=== PATIENT | female | born 1995 | race American Indian/Alaskan Native ===

== ENCOUNTER 2016-08-29 19:40 | Outpatient (CLI) | payer OTHER, MEDICAID ==
--- NOTE | 2016-08-30 07:05 | Ultrasound Report ---
BIOPHYSICAL PROFILE: INDICATION: well being. COMPARISON: None similar during this gestation. TECHNIQUE: Transabdominal ultrasound with Doppler interrogation. 2 - breathing movements 2 - movements 2 - posture and tone 2 - Qualitative amniotic fluid volume 8 - TOTAL SCORE OF POSSIBLE 8 Heart Rate (bpm) 162
[2016-08-30 17:52] VITALS: BP 136/72
== END 2016-08-29 22:05 | disposition home or self-care (01) ==
LOC: TRG 19:40
PROVIDERS: ATTEND Obstetrics & Gynecology Gynecology
DX: Z36 Encounter for antenatal screening of mother (principal); Z3A.40 40 weeks gestation of pregnancy
CPT/HCPCS: 76819

== ENCOUNTER 2020-03-25 03:24 | Emergency (ER) | payer MEDICAID, OTHER ==
[2020-03-25 05:06] VITALS: BP 154/88
[2020-03-25 05:51] LABS: Basophils # (Auto) 0.1 K/mm3 (0.0-0.1); Basophils % (Auto) 0.4 % (0.0-1.8); Eosinophils # (Auto) 0.3 K/mm3 (0.0-0.4); Eosinophils % (Auto) 2.5 % (0.0-4.3); Hematocrit 38.5 % (30.3-42.9); Hemoglobin 13.5 gm/dl (10.1-14.3); Lymphocytes # (Auto) 2.7 K/mm3 (1.2-5.4); Lymphocytes % (Auto) 20.7 % (13.4-35.0); Mean Corpuscular HGB Conc 35 % (30-34); Mean Corpuscular Volume 91 fl (79-97); Monocytes # (Auto) 0.7 K/mm3 (0.0-0.8); Monocytes % (Auto) 5.5 % (0.0-7.3); Platelet Count 372 K/mm3 (140-440); Red Blood Count 4.24 M/mm3 (3.65-5.03); Red Cell Distribution Width 13.5 % (13.2-15.2)
[2020-03-25 06:13] LABS: Alanine Aminotransferase 15 units/L (7-56); Albumin 4.2 g/dL (3.9-5); Blood Urea Nitrogen 15 mg/dL (7-17); Calcium 9.6 mg/dL (8.4-10.2); Hemolysis Index 8
[2020-03-25 06:17] LABS: BUN/Creatinine Ratio 25
[2020-03-25 06:50] LABS: Bilirubin,Urine NEG (Negative); Blood,Urine NEG (Negative); Color,Urine Yellow (Yellow); Mucus,Urine FEW /HPF; Protein,Urine <15 mg/dL mg/dL (Negative); Urobilinogen,Urine < 2.0 mg/dL (<2.0); WBC,Urine < 1.0 /HPF (0.0-6.0)
[2020-03-25] MEDS ORDERED: ONDANSETRON 4 MG/2 ML INJ IV ONE (07:20)
[2020-03-25] MEDS ORDERED: FAMOTIDINE 20 MG TAB PO ONE (07:20)
[2020-03-25] MEDS ORDERED: MORPHINE 2 MG/1 ML INJ IV ONE (07:20)
[2020-03-25] MEDS ORDERED: SODIUM CHLORIDE 0.9% 1000 ML 1,000 ML IV ONE (07:20)
--- NOTE | 2020-03-25 07:52 | Emergency Department Report ---
ED Abdominal Pain HPI - General Chief Complaint: Abdominal Pain Stated Complaint: ABD PAIN VOMITING Time Seen by Provider: 03/25/20 07:12 Source: patient Mode of arrival: Ambulatory Limitations: No Limitations - History of Present Illness Initial Comments: 24-year-old female with no significant past medical history presents to the ER today complaining of epigastric abdominal pain. Patient states that her symptoms started last night around 9/10 PM. Patient states that her pain initially started in her lower back, but then gradually settled into the upper abdominal area. She describes the pain as a burning constant pain. She states she had a chicken wrap with honey mustard about 1 hr prior to pain starting. She reports associated vomiting. She states that she vomited 3-4 times. Emesis was mainly food/liquid. She denies any hematemesis. She denies any bowel changes. She denies any fever or chills. She denies any chest pain or shortness of breath. She denies any abdominal surgeries in the past. She denies any alcohol abuse or NSAID abuse. Patient reports that her pain initially started and was a 10 out of 10. She states that it is now an 8 out of 10. Her last menstrual cycle was March 04, 2020. Complaint: abdominal pain -: Gradual, Last night - Related Data Previous Rx's Medication Instructions Recorded Last Taken Type Famotidine [Pepcid] 20 mg PO BID #30 tablet 03/25/20 Unknown Rx HYDROcodone/APAP 5-325 [[place] 1 each PO Q6HR PRN #12 tablet 03/25/20 Unknown Rx 5/325] Ondansetron [Zofran Odt] 4 mg PO Q8HR PRN #12 tab.rapdis 03/25/20 Unknown Rx Allergies Allergy/AdvReac Type Severity Reaction Status Date / Time No Known Allergies Allergy Verified 08/30/16 09:14 ED Review of Systems ROS: Stated complaint: ABD PAIN VOMITING Other details as noted in HPI Comment: All other systems reviewed and negative Constitutional: denies: chills, fever Eyes: as per HPI Respiratory: denies: cough, shortness of breath, wheezing Cardiovascular: denies: chest pain, palpitations Gastrointestinal: abdominal pain, nausea, vomiting. denies: diarrhea, constipation, hematemesis, hematochezia Genitourinary: denies: urgency, dysuria, discharge Musculoskeletal: back pain Skin: denies: rash, lesions Neurological: denies: headache, weakness, paresthesias Psychiatric: denies: anxiety, depression Hematological/Lymphatic: denies: easy bleeding, easy bruising ED Past Medical Hx - Past Medical History Previous Medical History?: Yes Hx Hypertension: No Hx Congestive Heart Failure: No Hx Diabetes: No Hx Deep Vein Thrombosis: No Hx Renal Disease: No Hx Sickle Cell Disease: No Hx Seizures: No Hx Asthma: Yes Hx COPD: No Hx HIV: No - Surgical History Past Surgical History?: No - Social History Smoking Status: Never Smoker - Medications Home Medications: Home Medications Medication Instructions Recorded Confirmed Last Taken Type Famotidine [Pepcid] 20 mg PO BID #30 tablet 03/25/20 Unknown Rx HYDROcodone/APAP 5-325 [[place] 1 each PO Q6HR PRN #12 tablet 03/25/20 Unknown Rx 5/325] Ondansetron [Zofran Odt] 4 mg PO Q8HR PRN #12 tab.rapdis 03/25/20 Unknown Rx ED Physical Exam - General Limitations: No Limitations General appearance: alert, in no apparent distress, other (pt was sleeping comf ortably when I walked in room) - Head Head exam: Present: atraumatic, normocephalic, normal inspection - Eye Eye exam: Present: normal appearance - ENT ENT exam: Present: mucous membranes moist - Respiratory Respiratory exam: Present: normal lung sounds bilaterally. Absent: respiratory distress - Cardiovascular Cardiovascular Exam: Present: regular rate, normal rhythm. Absent: systolic murmur, diastolic murmur, rubs, gallop - GI/Abdominal GI/Abdominal exam: Present: soft, tenderness (Epigastric/RUQ; Neg leal's). Absent: distended, guarding, rebound - Neurological Exam Neurological exam: Present: alert, oriented X3, CN II-XII intact, normal gait - Psychiatric Psychiatric exam: Present: normal affect, normal mood - Skin Skin exam: Present: intact ED Course Vital Signs 03/25/20 05:02 Temperature 97.8 F Pulse Rate 90 Respiratory 18 Rate Blood Pressure 154/88 O2 Sat by Pulse 98 Oximetry ED Medical Decision Making - Lab Data Result diagrams: 03/25/20 05:29 03/25/20 05:29 - Radiology Data Radiology results: report reviewed - Medical Decision Making 901 --patient reports that her pain is much better after IV morphine, IV Zofran, and Pepcid. Patient is resting comfortably and she does not appear to be in any acute distress. She is not toxic or ill-appearing. No vomiting during stay. Vital signs are stable. Labs/ultrasound reviewed. Ultrasound shows gallstones but no apparent signs of infection. Discussed results with [facility]. Recommend follow-up with general surgeon for further evaluation and treatment of her gallstones. I did discuss diet changes with patient. I did discussed worsening signs and symptoms and what to look for to return to the ER with patient. Patient expresses understanding of instructions and agrees with plan. No further work-up or admission or emergent consultation indicated at this time. Patient stable at time of discharge. Critical care attestation.: If time is entered above; I have spent that time in minutes in the direct care of this critically ill patient, excluding procedure time. ED Disposition Clinical Impression: Gallstone Disposition: DC-01 TO HOME OR SELFCARE Is pt being admited?: No Does the pt Need Aspirin: No Condition: Stable Instructions: Biliary Colic (ED) Additional Instructions: I recommend that you follow-up with a general surgeon as discussed. I recommend that you avoid fried fatty greasy as well as acidic foods. Take the medication prescribed as directed. Return to the ER if the pain becomes worse, with associated fever, uncontrolled nausea and vomiting. Prescriptions: HYDROcodone/APAP 5-325 [[place] 5/325] 1 each PO Q6HR PRN #12 tablet PRN Reason: Pain Famotidine [Pepcid] 20 mg PO BID #30 tablet Ondansetron [Zofran Odt] 4 mg PO Q8HR PRN #12 tab.rapdis PRN Reason: Vomiting Referrals: SILAS GILBERT MD [Staff Physician] - 3-5 Days Forms: Work/School Release Form(ED) Time of Disposition: 09:03
--- NOTE | 2020-03-25 08:48 | Ultrasound Report ---
ULTRASOUND ABDOMEN, LIMITED (RIGHT UPPER QUADRANT) INDICATION: Epigastric pain. COMPARISON: None available. FINDINGS: Pancreas: Visualized portion shows no significant abnormality. Liver: Normal. Gallbladder: Multiple gallstones. No wall thickening. Bile ducts: Normal. Common Bile Duct measures 3.5. mm. Free fluid: None. Additional Findings: Mild fullness at the right renal pelvis. IMPRESSION: 1. Gallstones without wall thickening or biliary dilatation. 2. Suspect right extrarenal pelvis. Signer Name: Caleb Jones MD Signed: 03/25/2020 8:44 AM Workstation Name: [id number]
== END 2020-03-25 09:16 | disposition home or self-care (01) ==
LOC: ED 03:24
DX: K80.20 Calculus of gallbladder without cholecystitis without obstruction (principal); J45.909 Unspecified asthma, uncomplicated; R11.2 Nausea with vomiting, unspecified; Z79.899 Other long term (current) drug therapy
CPT/HCPCS: 36415; 76705; 80053; 81001; 83690; 84703; 85025; 96361; 96374; 96375; 99284; J2270; J2405; J7030

== ENCOUNTER 2020-09-12 03:43 | Emergency (ER) | payer MEDICAID ==
[2020-09-12 03:59] VITALS: BP 125/88
[2020-09-12 04:42] LABS: Basophils % (Auto) 0.3 % (0.0-1.8); Eosinophils # (Auto) 0.2 K/mm3 (0.0-0.4); Eosinophils % (Auto) 2.1 % (0.0-4.3); Hematocrit 36.7 % (30.3-42.9); Hemoglobin 12.6 gm/dl (10.1-14.3); Lymphocytes # (Auto) 2.5 K/mm3 (1.2-5.4); Lymphocytes % (Auto) 24.8 % (13.4-35.0); Mean Corpuscular HGB Conc 34 % (30-34); Mean Corpuscular Volume 91 fl (79-97); Monocytes # (Auto) 0.6 K/mm3 (0.0-0.8); Monocytes % (Auto) 6.1 % (0.0-7.3); Platelet Count 344 K/mm3 (140-440); Red Blood Count 4.03 M/mm3 (3.65-5.03); Red Cell Distribution Width 13.6 % (13.2-15.2)
[2020-09-12] MEDS ORDERED: DICYCLOMINE 20 MG/2 ML INJ IM ONE (04:51)
[2020-09-12] MEDS ORDERED: LIDOCAINE VISCOUS 2% 15 ML ORAL LIQD PO ONE (04:51)
[2020-09-12] MEDS ORDERED: ONDANSETRON 4 MG/2 ML INJ IV ONE (04:51)
[2020-09-12] MEDS ORDERED: ALUM-MAG HYDROXIDE-SIMETHICONE 200-200-20MG/5ML ORAL LIQD 30 ML PO ONE (04:51)
[2020-09-12] MEDS ORDERED: FAMOTIDINE 20 MG/2 ML INJ IV ONE (04:51)
[2020-09-12 04:55] LABS: Alanine Aminotransferase 12 units/L (7-56); Albumin 3.9 g/dL (3.9-5); Blood Urea Nitrogen 11 mg/dL (7-17); Calcium 8.8 mg/dL (8.4-10.2); Hemolysis Index 23
[2020-09-12 05:00] LABS: BUN/Creatinine Ratio 18
[2020-09-12 05:36] LABS: Bilirubin,Urine NEG (Negative); Blood,Urine NEG (Negative); Color,Urine Yellow (Yellow); Mucus,Urine FEW /HPF; Protein,Urine <15 mg/dL mg/dL (Negative); Urobilinogen,Urine < 2.0 mg/dL (<2.0)
--- NOTE | 2020-09-12 06:17 | Ultrasound Report ---
ULTRASOUND ABDOMEN, LIMITED (RIGHT UPPER QUADRANT) INDICATION: RUQ + Epigastric pain. COMPARISON: None available. FINDINGS: Pancreas: Visualized portion shows no significant abnormality. Liver: Normal. Gallbladder: Multiple gallstones. Bile ducts: Normal. Common Bile Duct measures 2 mm. Free fluid: None. Additional Findings: None. IMPRESSION: Multiple gallstones. No wall thickening or biliary dilatation. Signer Name: Caleb Jones MD Signed: 09/12/2020 6:12 AM Workstation Name: [id number]
--- NOTE | 2020-09-12 06:22 | Emergency Department Report ---
ED Abdominal Pain HPI - General Chief Complaint: Abdominal Pain Stated Complaint: ABD PAIN Source: patient Mode of arrival: Stretcher Limitations: No Limitations - History of Present Illness Initial Comments: Patient is a 24-year-old -Turkish female with a history of obesity, cholelithiasis and asthma who presents to the ED with complaint of acute onset persistent epigastric pain that radiates to the right upper quadrant area with nausea and vomiting for the last 4 hours. Patient states that her symptoms got worse specially in the last 2 hours when she woke up with sharp burning pain in the epigastric and right upper quadrant area. Patient states that she was di agnosed with cholelithiasis about 3 months ago and was supposed to follow-up with a general surgeon but never did follow-up with any general surgeon as instructed. Patient states that she ate multiple different foods that she knew not to eat and subsequently started having the symptoms. Patient denies dizziness, syncope, hematemesis, hematochezia, diarrhea, fever, chills, cough, chest pain, shortness of breath, headache, change in vision, vaginal discharge, vaginal bleeding, dysuria or low back pain. MD Complaint: abdominal pain (Epigastric and RUQ pain), other (Nausea and vomiting) -: Sudden, hour(s) (4) Location: RUQ, epigastric Radiation: RUQ, epigastric Migration to: no migration Severity scale (0 -10): 8 Quality: cramping, aching, sharp Consistency: constant Improves With: nothing Worsens With: nothing Context: other (chronic cholelithiasis) Associated Symptoms: denies other symptoms, nausea, anorexia. denies: vomiting, diarrhea, fever, chills, constipation, dysuria, hematemesis, hematochezia, melena, hematuria, syncope, other - Related Data LMP Date: 08/25/20 LMP (females 10-50): 3 weeks Previous Rx's Medication Instructions Recorded Last Taken Type HYDROcodone/APAP 5-325 [[place] 1 each PO Q6HR PRN #12 tablet 03/25/20 Unknown Rx 5/325] Dicyclomine [Bentyl] 20 mg PO Q6H PRN #30 tablet 09/12/20 Unknown Rx Famotidine [Pepcid] 20 mg PO BID #60 tablet 09/12/20 Unknown Rx Naproxen 500 mg PO Q12H PRN #20 tablet 09/12/20 Unknown Rx Ondansetron [Zofran ODT TAB] 4 mg PO Q6HR PRN #20 tab.rapdis 09/12/20 Unknown Rx Allergies Allergy/AdvReac Type Severity Reaction Status Date / Time No Known Allergies Allergy Verified 08/30/16 09:14 ED Review of Systems ROS: Stated complaint: ABD PAIN Other details as noted in HPI Constitutional: denies: chills, fever Eyes: denies: eye pain, eye discharge, vision change ENT: denies: ear pain, throat pain Respiratory: denies: cough, shortness of breath, wheezing Cardiovascular: denies: chest pain, palpitations Endocrine: no symptoms reported Gastrointestinal: abdominal pain (Epigastric and right upper quadrant pain), nausea, vomiting. denies: diarrhea Genitourinary: denies: urgency, dysuria, discharge Musculoskeletal: denies: back pain, joint swelling, arthralgia Skin: denies: rash, lesions Neurological: denies: headache, weakness, paresthesias Psychiatric: denies: anxiety, depression Hematological/Lymphatic: denies: easy bleeding, easy bruising ED Past Medical Hx - Past Medical History Previous Medical History?: Yes Hx Hypertension: No Hx Congestive Heart Failure: No Hx Diabetes: No Hx Deep Vein Thrombosis: No Hx Renal Disease: No Hx Sickle Cell Disease: No Hx Seizures: No Hx Asthma: Yes Hx COPD: No Hx HIV: No Additional medical history: Gall stones - Surgical History Past Surgical History?: No - Social History Smoking Status: Never Smoker Substance Use Type: None - Medications Home Medications: Home Medications Medication Instructions Recorded Confirmed Last Taken Type HYDROcodone/APAP 5-325 [[place] 1 each PO Q6HR PRN #12 tablet 03/25/20 Unknown Rx 5/325] Dicyclomine [Bentyl] 20 mg PO Q6H PRN #30 tablet 09/12/20 Unknown Rx Famotidine [Pepcid] 20 mg PO BID #60 tablet 09/12/20 Unknown Rx Naproxen 500 mg PO Q12H PRN #20 tablet 09/12/20 Unknown Rx Ondansetron [Zofran ODT TAB] 4 mg PO Q6HR PRN #20 tab.rapdis 09/12/20 Unknown Rx ED Physical Exam - General Limitations: No Limitations General appearance: alert, in no apparent distress - Head Head exam: Present: atraumatic, normocephalic, normal inspection - Eye Eye exam: Present: normal appearance, PERRL, EOMI Pupils: Present: normal accommodation - ENT ENT exam: Present: normal exam, normal orophraynx, mucous membranes moist, TM's normal bilaterally, normal external ear exam - Neck Neck exam: Present: normal inspection, full ROM - Respiratory Respiratory exam: Present: normal lung sounds bilaterally. Absent: respiratory distress, wheezes, rales, rhonchi, chest wall tenderness, accessory muscle use, decreased breath sounds, prolonged expiratory - Cardiovascular Cardiovascular Exam: Present: regular rate, normal rhythm, normal heart sounds. Absent: systolic murmur, diastolic murmur, rubs, gallop - GI/Abdominal GI/Abdominal exam: Present: soft, tenderness (Palpable epigastric and right upper quadrant tenderness, negative Casas sign), normal bowel sounds. Absent: guarding, rebound, hyperactive bowel sounds, hypoactive bowel sounds, organomegaly - Extremities Exam Extremities exam: Present: normal inspection, full ROM, normal capillary refill - Back Exam Back exam: Present: normal inspection, full ROM. Absent: tenderness, CVA tenderness (R), CVA tenderness (L), muscle spasm, paraspinal tenderness, vertebral tenderness - Neurological Exam Neurological exam: Present: alert, oriented X3, CN II-XII intact, normal gait, reflexes normal - Psychiatric Psychiatric exam: Present: normal affect, normal mood - Skin Skin exam: Present: warm, dry, intact, normal color. Absent: rash ED Course Vital Signs 09/12/20 09/12/20 03:54 03:59 Temperature 98.4 F Pulse Rate 82 Respiratory 18 Rate Blood Pressure 125/88 O2 Sat by Pulse 97 Oximetry ED Medical Decision Making - Lab Data Result diagrams: 09/12/20 04:16 09/12/20 04:16 - Radiology Data Radiology results: report reviewed, image reviewed [facility] [address] [place] [address] Ultrasound Report Signed Patient: EMILIANO LEDEZMA MR#: [id number] : 1995 Acct:[id number] Age/Sex: 24 / F ADM Date: 09/12/20 Loc: ED Attending Dr: Ordering Physician: KATELYNN VAN Date of Service: 09/12/20 Procedure(s): US abdomen limited Accession Number(s): [id number] cc: KATELYNN VAN ULTRASOUND ABDOMEN, LIMITED (RIGHT UPPER QUADRANT) INDICATION: RUQ + Epigastric pain. COMPARISON: None available. FINDINGS: Pancreas: Visualized portion shows no significant abnormality. Liver: Normal. Gallbladder: Multiple gallstones. Bile ducts: Normal. Common Bile Duct measures 2 mm. Free fluid: None. Additional Findings: None. IMPRESSION: Multiple gallstones. No wall thickening or biliary dilatation. Signer Name: Caleb Jones MD Signed: 09/12/2020 6:12 AM Workstation Name: [id number] Transcribed By: BURAK Dictated By: Caleb Jones MD Electronically Authenticated By: Caleb Jones MD Signed Date/Time: 09/12/20611 DD/ 1 TD/TT: - Medical Decision Making This is a 24-year-old -Turkish female with a history of obesity, cholelithiasis and asthma who presents to the ED with complaint of acute onset persistent epigastric pain that radiates to the right upper quadrant area with nausea and vomiting for the last 4 hours. Patient states that her symptoms got worse specially in the last 2 hours when she woke up with sharp burning pain in the epigastric and right upper quadrant area. Patient states that she was diagnosed with cholelithiasis about 3 months ago and was supposed to follow-up with a general surgeon but never did follow-up with any general surgeon as instructed. Patient states that she ate multiple different foods that she knew not to eat and subsequently started having the symptoms. In the ED, patient is alert and oriented x3 and is not in distress. Patient was treated for nausea and vomiting and pain as well as given antacids. Lab test results were reviewed and are all nonactionable. Gallbladder ultrasound showed multiple gallstones with no gallbladder wall thickening or biliary dilatation. On reevaluation, patient's pain is well controlled medications. Patient was discharged home on pain medications, antacids and antiemetics and was given a referral to the general surgeon on-call Dr. Nava for follow-up. Patient was advised to contact Dr. Nava's office first thing in the morning today Saturday, September 12, 2020 to schedule a follow-up appointment. Patient was otherwise advised return to the ED immediately if symptoms get worse. - Differential Diagnosis Cholelithiasis; cholecystitis; GERD; gastritis; gastroenteritis; UTI; Critical care attestation.: If time is entered above; I have spent that time in minutes in the direct care of this critically ill patient, excluding procedure time. ED Disposition Clinical Impression: Acute abdominal pain in right upper quadrant, Nausea and vomiting in adult patient, Cholelithiasis without cholecystitis Disposition: TO HOME OR SELFCARE Is pt being admited?: No Does the pt Need Aspirin: No Condition: Stable Instructions: Cholelithiasis, [id number], Nausea and Vomiting, Adult, [id number], Abdominal Pain, Adult, [id number], Gallbladder Eating Plan, Abdominal Pain (ED) Additional Instructions: All lab test results were reviewed and are all nonactionable. Gallbladder ultrasound showed multiple gallstones within the gallbladder with normal gallbladder wall thickening. Therefore take medications as needed for pain and for nausea and vomiting as well as antacid. Follow-up with the general surgeon on-call Dr. Nava as advised for further evaluation. Contact Dr. Nava's office first thing this morning Saturday, September 12, 2020 to schedule a follow-up appointment. Return to the ED immediately if symptoms get worse. Prescriptions: Dicyclomine [Bentyl] 20 mg PO Q6H PRN #30 tablet PRN Reason: Abdominal pain Naproxen 500 mg PO Q12H PRN #20 tablet PRN Reason: Pain , Severe (7-10) Famotidine [Pepcid] 20 mg PO BID #60 tablet Ondansetron [Zofran ODT TAB] 4 mg PO Q6HR PRN #20 tab.rapdis PRN Reason: Vomiting Referrals: LUZMA CUMMINGS MD [Staff Physician] - 3-5 Days ADELITA NAVA MD [Staff Physician] - 3-5 Days Time of Disposition: 06:22 Print Language: HAITIAN
== END 2020-09-12 06:40 | disposition home or self-care (01) ==
LOC: ED 03:43
DX: K80.20 Calculus of gallbladder without cholecystitis without obstruction (principal); R10.11 Right upper quadrant pain; R10.13 Epigastric pain; R11.2 Nausea with vomiting, unspecified; J45.909 Unspecified asthma, uncomplicated; Z79.899 Other long term (current) drug therapy
CPT/HCPCS: 36415; 76705; 80053; 81001; 83690; 84703; 85025; 96372; 96374; 96375; 99284; J0500; J2405

== ENCOUNTER 2020-10-16 10:55 | Day surgery (SDC) | payer MEDICAID ==
[~2020-10-16 10:55] MED LIST: ACETAMINOPHEN 500 MG TAB PO SCH; CELECOXIB 200 MG CAP PO NR; GABAPENTIN 300 MG CAP PO NR; LACTATED RINGERS 1,000 ML IV SCH; MIDAZOLAM 2 MG/2 ML INJ IV NR; SCOPOLAMINE TRANSDERMAL PATCH 72 HR TD NR
[2020-10-16] MEDS ORDERED: ONDANSETRON 4 MG/2 ML INJ IV PRN (11:38)
--- NOTE | 2020-10-16 11:44 | Anesthesia Day of Surgery ---
Anesthesia Day of Surgery - Day of Surgery Patient Examined: Yes Patient H&P Reviewed: Yes Patient is NPO: Yes
--- NOTE | 2020-10-16 11:44 | Anesthesia Consultation ---
Anesthesia Consult and Med Hx Date of service: 10/16/20 - Airway Anesthetic Teeth Evaluation: Good ROM Head & Neck: Adequate Mental/Hyoid Distance: Adequate Mallampati Class: Class I Intubation Access Assessment: Good - Pre-Operative Health Status ASA Pre-Surgery Classification: ASA2 Proposed Anesthetic Plan: General - Pulmonary Hx Smoking: Yes (quit cigs 2-3months ago, currently vapes ) Hx Asthma: Yes (no inhaler use in 203yrs) Hx Respiratory Symptoms: No - Cardiovascular System Hx Hypertension: No - Central Nervous System CVA: No Hx Psychiatric Problems: Yes (depression) - Gastrointestinal Hx Gastroesophageal Reflux Disease: Yes (diet controlled) - Endocrine Hx Renal Disease: No Hx Liver Disease: No Hx Insulin Dependent Diabetes: No Hx Non-Insulin Dependent Diabetes: No Hx Thyroid Disease: No - Other Systems Hx Obesity: Yes (BMI 34) - Additional Comments Anesthesia Medical History Comments: No hx anesthetic complications. UPT positive in preop holding. Patient reports that she had medical on 10/11/20 and is currently still bleeding. Discussed with surgeon. Will order CBC to assess for anemia. Will also order quantitative bHCG.
[2020-10-16] MEDS ORDERED: BUPIVACAINE/PF (0.25%) 2.5 MG/ML 30 ML VIAL INFILTRATI ONE ×2 (11:52→14:49)
[2020-10-16 11:55] LABS: Hematocrit 31.5 % (30.3-42.9); Hemoglobin 10.8 gm/dl (10.1-14.3); Mean Corpuscular HGB Conc 34 % (30-34); Mean Corpuscular Volume 93 fl (79-97); Platelet Count 268 K/mm3 (140-440); Red Blood Count 3.41 M/mm3 (3.65-5.03); Red Cell Distribution Width 13.6 % (13.2-15.2)
[2020-10-16] MEDS ORDERED: propofoL 200 MG/20 ML VIAL IV ONE (12:02)
[2020-10-16] MEDS ORDERED: LIDOCAINE MPF (2%) 20 MG/1 ML VIAL 5 ML ONE (12:02)
[2020-10-16] MEDS ORDERED: ONDANSETRON 4 MG/2 ML INJ ONE (12:02)
[2020-10-16] MEDS ORDERED: dexAMETHasone 20 MG/5 ML VIAL ONE (12:02)
[2020-10-16] MEDS ORDERED: ROCURONIUM 50 MG/5 ML INJ IV ONE (12:02)
[2020-10-16] MEDS ORDERED: fentaNYL 100 MCG/2 ML INJ ONE ×2 (12:02→14:11)
[2020-10-16] MEDS ORDERED: ceFAZolin/STERILE WATER 2 GM/20 ML SYRINGE IV NR (13:00)
[2020-10-16] MEDS ORDERED: HEPARIN 5,000 UNIT/1 ML VIAL ONE (13:13)
[2020-10-16] MEDS ORDERED: HEPARIN 5,000 UNIT/1 ML VIAL SUB-Q NR (13:15)
[2020-10-16] MEDS ORDERED: HYDROmorphone 1 MG/1 ML INJ ONE (13:53)
[2020-10-16] MEDS ORDERED: NEOSTIGMINE 10MG/10 ML INJ MDV ONE (14:24)
[2020-10-16] MEDS ORDERED: GLYCOPYRROLATE 0.4 MG/2 ML INJ ONE (14:24)
[2020-10-16] MEDS ORDERED: SODIUM CHLORIDE 0.9% IRRIG SOLN 2000 ML IR ONE (14:50)
--- NOTE | 2020-10-16 15:07 | Procedure Note ---
Date of procedure: 10/16/20 Pre-op diagnosis: chronic cholecystitis Post-op diagnosis: same Procedure: Laparoscopic cholecystectomy Description of procedure: Pt was placed supine on the OR table. GETA was administered. Abdomen was prepped and draped. Proposed trocar sites were in filtrated with 10 ml of 0.5% Marcaine. A small, infraumbilical incision was made. Linea alba was incised and the peritoneal cavity carefully entered. A Asher port was inserted into the peritoneal cavity and pneumoperitoneum established. 10 mm subxiphoid, 5 mm RUQ and 5 mm right lateral ports were inserted into the peritoneal cavity under direct vision without incident. Pt was placed head and right side up. Fundus of the gallbladder was grasped and retracted cephalad. Omental adhesions were removed from the gallbladder. Cystic duct, artery and neck of the gallbladder were skeletonized and the critical view of safety obtained. Cystic duct was milked towards the gallbladder. Cystic artery and duct were doubly clipped and divided. Gallbladder was dissected from it's hepatic fossa with the Bovie. Gallbladder was placed in an endobag and the endobag removed via the infraumbilical fascial defect. Asher port was replaced and pneumoperitoneum re-established. Upper abdominal ports were removed and no bleeding was identified from the port entry sites under low pressure. Asher port was removed and the pneumoperitoneum released. The infraumbilical fascial defect was closed with 2 interrupted sutures of 0-Vicryl. Skin incisions were closed with running, subcuticular sutures of 4-0 Monocryl. Skin glue was applied to all incision sites. Pt tolerated the procedure well and was extubated in the OR. Pt was taken to PACU in stable condition. Anesthesia: GETA Surgeon: ADELITA NAVA Estimated blood loss: minimal Pathology: list (Gallbladder) Specimen disposition: to lab Condition: stable Disposition: PACU
[2020-10-16] MEDS: HYDROmorphone 1 MG/1 ML INJ IV PRN ×4 (15:21→15:51)
[2020-10-16] MEDS ORDERED: oxyCODONE /ACETAMINOPHEN 5-325MG TAB PO PRN (15:42)
[2020-10-16 16:30] VITALS: BP 135/78
--- NOTE | 2020-10-16 16:36 | Post Anesthesia Evaluation ---
- Post Anesthesia Evaluation Patient Participated: Yes Airway Patent: Yes Stable Respiratory Function: Yes Nausea/Vomiting: No Temp > 96.8F: Yes Pain Manageable: Yes Adequeate Hydration: Yes Anesthesia Complications: No
== END 2020-10-16 16:40 | disposition home or self-care (01) ==
LOC: OR 10:55
PROVIDERS: ATTEND Surgery
DX: K81.1 Chronic cholecystitis (principal); J45.909 Unspecified asthma, uncomplicated; K21.9 Gastro-esophageal reflux disease without esophagitis; E66.9 Obesity, unspecified; F32.9 Major depressive disorder, single episode, unspecified; Z72.89 Other problems related to lifestyle; Z79.899 Other long term (current) drug therapy; Z82.49 Family history of ischemic heart disease and other diseases of the circulatory system; Z68.34 Body mass index [BMI] 34.0-34.9, adult
CPT/HCPCS: 36415; 47562; 81025; 84702; 85027; 88304; A4217; J0690; J1100; J1170; J1644; J2250; J2405; J2704; J2710; J3010; J7120